=== PATIENT | male | born 1945 | race Caucasian/White ===

== ENCOUNTER 2020-08-24 13:14 | Emergency (ER) | payer MEDICARE, OTHER ==
[~2020-08-24 13:14] MED LIST: ACETAMINOPHEN500 M1 PO; BACTRIM DS TAB1 EACH PO; DEXAMETHASONE 2M2 MG PO; DEXTENZA PO; FOLIC ACID1 M1 PO; MOTRIN600 MG PO; PREDNISONE 20MG20 MG PO; XARELTO15 MG PO; ZOFRAN8 MG PO
[2020-08-24] MEDS ORDERED: PREDNISONE 20MG20 MG PO (14:52)
[2020-08-24] MEDS ORDERED: ULTRAM50 MG PO (14:52)
== END 2020-08-24 15:05 | disposition home or self-care (01) ==
LOC: FER 13:14
DX: M54.16 Radiculopathy, lumbar region (principal); Z85.118 Personal history of other malignant neoplasm of bronchus and lung; Z98.890 Other specified postprocedural states
CPT/HCPCS: 72131; J7512

== ENCOUNTER 2021-03-19 09:23 | Inpatient (IN) | payer MEDICARE, OTHER ==
[~2021-03-19] VITALS: Ht 175.3 cm; Wt 51.4 kg
[~2021-03-19 09:23] MED LIST changes: +ULTRAM50 MG PO
[2021-03-19 10:55] LABS: BASOPHIL 0.3 % (0-2); EOSINOPHIL 1.3 % (0-7); HCT 38.1 % (42.0-52.0); HGB 12.2 g/dl (13.2-18.0); LYMPHOCYTE 20.9 % (15-48); MCH 30.9 pg (25.0-31.0); MCV 96.5 fL (78.0-100.0); MONOCYTE 14.9 % (0-12); NEUTROPHIL 61.6 % (41-80); NRBC 0; PLT 425 K/uL (150-400); RBC 3.95 M/uL (4.70-6.00); RDW 14.8 % (11.5-14.0); WBC 12.6 K/uL (4.0-10.5)
[2021-03-19 11:14] LABS: BILIRUBIN - TOTAL 0.5 mg/dL (0.2-1.0); CREATININE 0.6 mg/dL (0.67-1.17); GLOBULIN (CALCULATION) 4.2 g/dL; POTASSIUM 4.7 mmol/L (3.5-5.1); TOTAL PROTEIN 7.2 g/dL (6.4-8.2)
[2021-03-19 11:50] LABS: BILIRUBIN NEGATIVE (NEGATIVE); BLOOD NEGATIVE Ery/uL (NEGATIVE); CLARITY CLEAR (CLEAR); COLOR YELLOW (YELLOW); GLUCOSE (U) NORMAL (NORMAL); LEUKOCYTES NEGATIVE Leu/uL (NEGATIVE); NITRITE NEGATIVE (NEGATIVE); PROTEIN NEGATIVE (NEGATIVE); SPECIFIC GRAVITY 1.025 (1.001-1.030); UROBILINOGEN 0.2 mg/dL (0.2-1.0); pH 6.5 (5.0-9.0)
--- NOTE | 2021-03-20 16:53 | NUR ---
[facility] MESSAGE WITH [facility] FOR [facility] FRAGOSO.
--- NOTE | 2021-03-23 11:07 | NUR ---
LATE ENTRY FOR 03/21/2021. SPOKE WITH PT SISTER AND GUARDIAN, JORGE A ROSE. SHE HAS BEEN WORKING WITH [employer] FOR PLACEMENT BEFORE HER BROTHER FELL. SHE WOULD LIKE TO CONTINUE WITH PLACEMENT AT [facility]. ADVISED HER THAT I WOULD FILL OUT THE CHOICE FORM FOR [employer] AND SIGN MY NAME. SHE WAS IN AGREEMENT. REFERRAL MADE TO [facility] PENDING FOR INSURANCE APPROVAL.
[2021-03-23] MEDS ORDERED: NORCO 5-325 TA1 EACH PO (14:35)
--- NOTE | 2021-03-23 15:17 | NUR ---
PT HAS BEEN ACCEPTED AT [facility]. REPORT NUMBER IS [phone] AND FAX IS [phone] OR [phone]. RON LONG AND DR. ROSAS HAVE BOTH BEEN NOTIFIED. PER RON SHE HAS SPOKEN WITH GUARDIAN AND SHE WAS ALREADY AT [facility] SIGNING THE PAPERWORK.
== END 2021-03-23 17:30 | DRG 543 ==
LOC: FER 09:23 → FMS 12:18
PROVIDERS: Emergency Medicine; ADMIT Allergy & Immunology Allergy
DX: M84.550A Pathological fracture in neoplastic disease, pelvis, initial encounter for fracture (principal); C79.51 Secondary malignant neoplasm of bone; C79.31 Secondary malignant neoplasm of brain; C34.90 Malignant neoplasm of unspecified part of unspecified bronchus or lung; Z20.822 Contact with and (suspected) exposure to COVID-19; F03.90 Unspecified dementia, unspecified severity, without behavioral disturbance, psychotic disturbance, mood disturbance, and anxiety; J43.2 Centrilobular emphysema; D50.9 Iron deficiency anemia, unspecified; W19.XXXA Unspecified fall, initial encounter; Y92.009 Unspecified place in unspecified non-institutional (private) residence as the place of occurrence of the external cause; Z98.890 Other specified postprocedural states; Z92.3 Personal history of irradiation
CPT/HCPCS: 36415; 70450; 71250; 73552; 80053; 81003; 83605; 83690; 84484; 85025; 87040; 93005; 97163; 97166; 97530-GP; 97535; J1650; J2270; J7030; U0002